=== PATIENT | female | born 1985 | race Asian ===

== ENCOUNTER 2023-08-10 07:40 | Day surgery (SDC) | payer BC ==
[2023-08-08 10:40] VITALS: BMI 32.2
[2023-08-10] MEDS ORDERED: Rocuronium Bromide 10 MG/ML (10ML VIAL) ONE (09:06)
[2023-08-10] MEDS ORDERED: PROPOFOL 20 ML ONE ×2 (09:06→09:56)
[2023-08-10] MEDS ORDERED: Ondansetron PF 4 MG/2 ML Vial ONE (09:06)
[2023-08-10] MEDS ORDERED: Midazolam HCl 2 mg/2 ml Vial ONE (09:06)
[2023-08-10] MEDS ORDERED: Fentanyl 250 MCG/5 ML VIAL ONE (09:06)
[2023-08-10] MEDS ORDERED: Lidocaine 2% PF 5 ML VIAL ONE (09:06)
[2023-08-10] MEDS ORDERED: Dexamethasone 4 mg/ml Vial ONE (09:06)
[2023-08-10 09:10] LABS: BHCG - Serum Negative (NEGATIVE); Pregs Control Background? CLEAR/WHITE (CLR/WHITE); Pregs Control Bar Appear? YES (CONTROL BAR)
[2023-08-10] MEDS ORDERED: EPINEPHrine 1 MG/ML VIAL ONE (09:44)
[2023-08-10] MEDS ORDERED: Bupivacaine PF 0.5% 30 ML VIAL ONE (09:44)
[2023-08-10] MEDS ORDERED: SUGAMMADEX SODIUM 200 MG/2 ML VIAL ONE (09:51)
[2023-08-10] MEDS ORDERED: HYDROmorphone 0.5 MG/0.5 ML SYRINGE ONE (09:52)
[2023-08-10] MEDS ORDERED: CEFAZOLIN 2 GM VIAL ONE (10:03)
[2023-08-10] MEDS ORDERED: HYDROcodone/Acetaminophen 5/325 mg Tablet PO PRN ×2 (11:36)
[2023-08-10] MEDS ORDERED: Acetaminophen 325 MG TAB PO PRN (11:36)
[2023-08-10] MEDS ORDERED: Ketorolac Tromethamine 30 MG (1 mL) VIAL ONE (11:46)
[2023-08-10] MEDS ORDERED: HYDROcodone/Acetaminophen 5/325 mg Tablet ONE (12:23)
== END 2023-08-10 13:05 | disposition home or self-care (01) ==
LOC: CSHSDC 07:40
PROVIDERS: ATTEND Surgery
PROC: 0HB7XZZ Excision of Abdomen Skin, External Approach (ICD-10-PCS; principal; 2023-08-10)
PROC: 0DB64ZZ Excision of Stomach, Percutaneous Endoscopic Approach (ICD-10-PCS; principal; 2023-08-10)
DX: D23.5 Other benign neoplasm of skin of trunk (principal); N80.9 Endometriosis, unspecified; F90.9 Attention-deficit hyperactivity disorder, unspecified type; E66.9 Obesity, unspecified; Z68.32 Body mass index [BMI] 32.0-32.9, adult; Z91.040 Latex allergy status; Z91.018 Allergy to other foods; Z79.899 Other long term (current) drug therapy
CPT/HCPCS: 36415; 84703; 88305; C1889; J0171; J0665; J1100; J1170; J1885; J2001; J2250; J2405; J2704; J3010